=== PATIENT | male | born 1975 | race Caucasian/White ===

== ENCOUNTER → 2020-05-06 13:42 | Outpatient (CLI) | payer OTHER, SELFPAY ==
--- NOTE | ~2020-05-06 | MR_ITS ---
EXAMINATION: MR hip LT wo con DATE: 05/06/2020 14:46 INDICATION: Left hip pain. TECHNIQUE: Magnetic resonance imaging (MRI) of the left hip was performed without intravenous contras t. Sequences included axial and coronal PD-weighted FS FSE and axial T1-weighted FSE of the pelvis. S equences of the hip included 2D FIESTA, T1-weighted fast GRE, and axial, coronal, and sagittal PD-milan ghted FS FSE. COMPARISON: None FINDINGS: Bones/cartilage: Bone alignment is normal. No fracture. Sclerotic lesions in left ilium and proximal right femur are l ikely benign bone islands. There is decreased femoral head/neck offset bilaterally, which may be seen with femoral acetabular impingement. The hip joints demonstrate tiny marginal osteophytes. Small fie ld-of-view images of left hip demonstrate partial thickness cartilage loss posteriorly. Labrum: There is a tear of base of left labrum superolaterally. Fluid: There is no hip joint effusion. No significant trochanteric bursitis. Soft tissues: The gluteus the antimesenteric gluteus medius tendons are normal. The hamstring tendons origins are n ormal. The iliopsoas tendons are normal. There is a complete tear of left adductor longus tendon at i ts attachment to left parasymphyseal pubis with 3 cm retraction. There is a partial tear of left pect ineus muscle at its attachment to left parasymphyseal pubis. There is hematoma at the site of the tea rs and edema in the surrounding tissues. IMPRESSION: 1. Complete tear of left adductor longus tendon and partial tear of left pectineus tendon at their at tachments to left parasymphyseal pubis. 2. Mild osteoarthritis of the hips. Reviewed, dictated and finalized at location A. IMPRESSION: 1. Complete tear of left adductor longus tendon and partial tear of left pectin eus tendon at their attachments to left parasymphyseal pubis. 2. Mild osteoarthritis of the hips.
== END ==
DX: M16.0 Bilateral primary osteoarthritis of hip (principal); S39.013A Strain of muscle, fascia and tendon of pelvis, initial encounter; X58.XXXA Exposure to other specified factors, initial encounter
CPT/HCPCS: 73721

== ENCOUNTER 2020-09-02 13:00 | Outpatient (CLI) | payer OTHER, SELFPAY | END 2020-09-02 13:01 | disposition home or self-care (01) | PROVIDERS: Family Provider Family Medicine; PCP Family Medicine; Visit Provider Otolaryngology | DX: H93.13 Tinnitus, bilateral (principal); H90.3 Sensorineural hearing loss, bilateral | CPT/HCPCS: 92557; 92567 ==